=== PATIENT | female | born 1960 | race Caucasian/White ===

== ENCOUNTER 2016-10-29 13:19 | Inpatient (IN) | payer OTHER ==
[~2016-10-29] VITALS: Ht 172.7 cm; Wt 68.0 kg
--- NOTE | 2016-10-29 13:36 | ED PSYCHIATRIC COMPLAINT ---
History of Present Illness General Chief Complaint: ETOH/Drug Related Complaint Stated Complaint: DETOX/ETOH Source: patient, family Exam Limitations: no limitations Vital Signs & Intake/Output Vital Signs & Intake/Output Vital Signs Date Time Temp Pulse Resp B/P B/P Pulse O2 O2 Flow FiO2 Mean Ox Delivery Rate 10/30 2027 90 124/84 10/29 2024 90 20 124/84 94 Room Air 10/29 1803 98.9 100 22 132/98 10/29 1628 100.1 91 22 119/67 10/29 1624 100.1 91 22 11967 94 Room Air 10/29 1500 99.3 95 20 127/70 10/29 1500 99.3 95 20 127/70 96 Room Air 10/29 1347 Room Air 10/29 1344 98.7 88 18 128/77 10/29 1328 98.0 88 20 128/77 98 Room Air Allergies Coded Allergies: Sulfa (Sulfonamide Antibiotics) (Intermediate, FACIAL SWELLING 10/29/16) Triage Note: PT PRESENTS TO ER FOR ALCOHOL DETOX. PT VISIBLY SHAKEY IN TRIAGE. PT STATES SHE LAST DRANK TUESDAY. PT STATES SHE HEAVILY DRINKS ON THE WEEKENDS, PT STATES SHE NORMALLY HAS ABOUT 4 GLASSES OF VODKA ON THE WEEKENDS. PT STATES SHE FEELS VERY ANXIOUS. PT DENIES SI/HI Triage Nurses Notes Reviewed? yes Onset: Gradual Duration: getting worse Severity: severe Severity Numbers: 10 HPI: Patient is a 56-year-old female with past medical history of alcohol dependency, anxiety, depression who presents emergency room and which she states that she's been a heavy drinker for a long time however denies any history of alcohol withdrawal seizures. Patient was evaluated at [facility] and noted to have alcohol from a breathalyzer in which patient was strongly advised to present to the emergency room by staff members. Patient states her last drink was Tuesday night when she drank a significant amount. Patient denies any illicit drug use. Denies any suicidal or homicidal ideation. Denies any auditory or visual hallucinations. Patient currently states that she is scared and tremulous and her anxiety level is very high. Patient was prescribed recently clonazepam however she has not taken his medications. Denies any nausea vomiting abdominal pain shortness of breath chest pain or headaches. (ANDRIA ELIZABETH,BRIAN) Reconcile Medications Atenolol 25 MG TABLET 1 TAB PO QAM HIGH BLOOD PRESSURE (Reported) Citalopram Hydrobromide (Citalopram HBr) 40 MG TABLET 1 TAB PO QAM DEPRESSION (Reported) Estrogens, Conjugated (Premarin) 0.3 MG TABLET 1 TAB PO QAM HORMONE ( Reported) Valsartan/Hydrochlorothiazide (Valsartan-Hctz 160-12.5 MG Tab) 160 MG-12.5 MG TABLET 1 TAB PO QAM HIGH BLOOD PRESSURE (Reported) (HARRIS PALMER DO) Past History Travel History Traveled to [place] past 21 day No Medical History Any Pertinent Medical History? see below for history Cardiovascular: hypertension Psychiatric: alcohol dependence, anxiety, depression Surgical History Surgical History: non-contributory Psychosocial History What is your primary language Yakut Tobacco Use: Never used ETOH Use: heavy use Illicit Drug Use: denies illicit drug use Family History Hx Contributory? No (BRIAN PANDEY) Review of Systems Review of Systems Constitutional: Reports: no symptoms. EENTM: Reports: no symptoms. Respiratory: Reports: no symptoms. Cardiovascular: Reports: no symptoms. GI: Reports: no symptoms. Genitourinary: Reports: no symptoms. Musculoskeletal: Reports: no symptoms. Skin: Reports: no symptoms. Neurological/Psychological: Reports: see HPI, anxiety. Hematologic/Endocrine: Reports: no symptoms. Immunologic/Allergic: Reports: no symptoms. 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 Cardiovascular: TACHYCARDIA, rhythms no murmurs rubs or gallops, normal JVP Respiratory: Chest nontender. No respiratory distress.breath sounds clear to auscultation bilaterally Abdomen: Soft, nontender nondistended, no appreciable organomegaly. Normal bowel sounds. No ascites Extremity: No edema, no calf tenderness to palpation, normal and equal pulses. Neuro: Alert oriented x3, motor sensory normal, cranial nerves II through XII grossly intact. Skin: No appreciable rash on exposed skin, skin is warm and dry. Psych: Mood and affect is normal, memory and judgment is normal. SAD PERSONS Done? patient not suicidal (ANDRIA ELIZABETH,BRIAN) Progress Differential Diagnosis: drug intoxication, drug overdose, drug withdrawal, electrolyte abnormality, encephalitis, hypoglycemia, hypothyroidism, IC hem/mass /tumor, meningitis Plan of Care: Orders Procedure Date/time Status Regular Diet 10/30 B Active Regular Diet 10/29 D Complete Vital Signs 10/29 1802 Active Teach/Educate 10/29 1802 Active Pain Treatment and Response 10/29 180 Active Nutritional Intake, Monitor 10/29 180 Active Isolation 10/29 1802 Active Intake & Output 10/29 1802 Active Patient Care Conference 10/29 1802 Active Activity/Ambulation 10/29 1802 Active Pathway - chart 10/29 1708 Active House Staff 10/29 1708 Active Patient Data 10/29 1708 Active SOCIAL WORK CONSULT 10/29 1708 Active Code Status 10/29 1708 Active ED Holding Orders 10/29 1640 Active Admit to inpatient 10/29 1640 Active Vital Signs 10/29 1640 Active Code Status 10/29 1640 Complete Intake & Output 10/29 1607 Active Patient Data 10/29 1534 Active CIWA 10/29 1337 Active URINE DRUG SCREEN FOR ER ONLY 10/29 1337 Complete MAGNESIUM 10/29 1337 Complete LIPASE 10/29 1337 Complete ETHANOL 10/29 1337 Complete COMPREHENSIVE METABOLIC PANEL 10/29 1337 Complete CBC WITHOUT DIFFERENTIAL 10/29 1337 Complete AMYLASE 10/29 1337 Complete EKG 10/29 1337 Active VTE Mechanical Prophylaxis 10/29 UNK Active Vital Signs 10/29 UNK Complete CIWA 10/29 UNK Complete MISSING MEDICATION FORM 10/29 UNK Active EKG 10/29 UNK Active Current Medications Sig/Sandee Start time Last Medication Dose Stop Time Status Admin Folic Acid 1 MG DAILY 10/31 1000 AC (Folic Acid) Multivitamins 1 TAB DAILY 10/31 1000 AC (Theragran Vitamins) Thiamine HCl 100 MG DAILY 10/31 1000 AC (Vitamin B1) Citalopram 40 MG DAILY 10/30 1000 AC Hydrobromide (Celexa) Estrogens Conjugated 0.3 MG DAILY 10/30 1000 AC (Premarin) Hydrochlorothiazide 12.5 MG DAILY 10/30 1000 AC (Hydrodiuril) Losartan Potassium 50 MG DAILY 10/30 1000 AC (Cozaar) Atenolol 25 MG QAM 10/29 1853 AC 10/29 (Tenormin) 2027 Lorazepam 2 MG Q6 10/29 1800 AC 10/29 (Ativan) 1823 Magnesium Sulfate 1 GM ONCE ONE 10/29 1730 AC 10/29 (Mag Sulfate in D5) 10/29 2128 193 Dextrose/Water 100 ML (D5W) Acetaminophen 1,000 MG Q6P PRN 10/29 1700 AC (Ofirmev) Ibuprofen 600 MG Q6P PRN 10/29 1700 AC (Motrin) Lorazepam 2 MG Q2P PRN 10/29 1700 AC (Ativan) Lorazepam 1 MG Q2P PRN 10/29 1700 AC (Ativan) Ondansetron HCl 4 MG Q8P PRN 10/29 1700 AC (Zofran) Oxycodone HCl 10 MG Q6P PRN 10/29 1700 AC (Roxicodone) Cyanocobalamin/ 1 BAG DAILY 10/29 1654 AC 10/29 Thiamine/Pyridoxine 10/31 1758 191 (Vitamin in I.V.) Dextrose/Water 1,000 ML (D5W 1000) Laboratory Tests 10/29/16 1410: Anion Gap 21 H, Estimated GFR > 60, BUN/Creatinine Ratio 11.1, Glucose 72, Calcium 8.9, Magnesium 0.8 *L, Total Bilirubin 0.4, AST 114 H, ALT 105 H, Alkaline Phosphatase 75, Total Protein 6.8, Albumin 4.3, Globulin 2.5, Albumin/ Globulin Ratio 1.7, Amylase 84, Lipase 286, CBC w Diff NO MAN DIFF REQ, RBC 3.62 L, MCV 91.1, MCH 30.8, RDW 13.9, MPV 8.1, Gran % 68.1, Lymphocytes % 21.6, Monocytes % 8.9, Eosinophils % 0.2, Basophils % 1.2, Absolute Granulocytes 3.4, Absolute Lymphocytes 1.1 L, Absolute Monocytes 0.4, Absolute Eosinophils 0, Absolute Basophils 0.1, PUBS MCHC 33.9, Serum Alcohol 111.0 10/29/16 1345: Urine Opiates Screen < 100.00, Methadone Screen 57, Barbiturate Screen < 60, Ur Phencyclidine Scrn < 6.00, Amphetamines Screen < 100, U Benzodiazepines Scrn < 85, Urine Cocaine Screen < 50, Urine Cannabis Screen < 5.00 Patient has no history of alcohol withdrawal seizures and her initial CIWA WAS 13 Patient does show tremulous activity and is anxious on physical exam however has nontender abdomen and no suicidal or homicidal ideation. Patient has critical findings of hypo-magnesium. IV Ativan and magnesium were administered along with normal saline fluid resuscitation. There is no concerns of prolonged QT interval on EKG (BRIAN PANDEY) Initial ED EKG: sINUS RHYTHM NOTED 85 BPM (BRIAN PANDEY) Departure Departure Disposition: STILL A PATIENT Condition: Guarded Clinical Impression Primary Impression: Hypomagnesemia Secondary Impressions: Alcohol dependence, Anxiety Departure Forms: Customer Survey General Discharge Information Admission Note Spoke With: ELVER ARRIOLA MD Documentation of Exam: Documentation of any treatments & extenuating circumstances including Concerns Regarding Discharge (functional status, medication knowledge or non-compliance, living conditions, etc.) that warrant an admission rather than observation: [ Discussed admission with who agrees with general medicine admission for concerns of hypo-magnesium and alcohol dependency. Patient requires IV magnesia , IV Ativan, CIWA SCORING and repeat labs. Outpatient treatment at this time due to critical findings of hypo-magnesium would be medically harmful] (BRIAN PANDEY) PA/[employer] Co-Sign Statement Statement: ED Attending supervision documentation- [x] I saw and evaluated the patient. I have also reviewed all the pertinent lab results and diagnostic results. I agree with the findings and the plan of care as documented in the PA's/[employer]'s documentation. [] I have reviewed the ED Record and agree with the PA's/[employer]'s documentation. [] Additions or exceptions (if any) to the PAs/[employer]'s note and plan are summarized below: [] (HARRIS PALMER DO) Critical Care Note Critical Care Note Critical Care Time: 30-74 min (BRIAN PANDEY)
[2016-10-29 13:44] VITALS: BP 128/77
[2016-10-29 14:31] LABS: ABSOLUTE BASOPHIL COUNT 0.1 /CUMM (0.0-0.2); ABSOLUTE EOSINOPHIL COUNT 0 /CUMM (0.0-0.7); ABSOLUTE GRANULOCYTE CT 3.4 /CUMM (1.4-6.5); ABSOLUTE LYMPH COUNT 1.1 /CUMM (1.2-3.4); ABSOLUTE MONOCYTE COUNT 0.4 /CUMM (0.10-0.60); BASOPHIL % 1.2 % (0.0-2.0); EOSINOPHIL % 0.2 % (0-5); GRANULOCYTE % 68.1 % (42.2-75.2); MEAN CORPUSCULAR HGB 30.8 PG (27.0-31.0); MEAN CORPUSCULAR HGB CONC 33.9 G/DL (33.0-37.0); MEAN CORPUSCULAR VOLUME 91.1 FL (81.0-99.0); MEAN PLATELET VOLUME 8.1 FL (7.4-10.4); PLATELET COUNT 342 /CUMM (130-400); RBC DISTRIBUTION WIDTH 13.9 % (11.5-14.5); RED BLOOD CELL CT 3.62 /CUMM (4.20-5.40)
[2016-10-29 15:00] VITALS: BP 127/70
[2016-10-29 16:28] VITALS: BP 119/67
[2016-10-29] MEDS ORDERED: VALSARTAN-HCTZ1 EAC1 PO (17:39)
[2016-10-29] MEDS ORDERED: ATENOLOL25 M1 PO (17:39)
[2016-10-29] MEDS ORDERED: PREMARIN0.3 M1 PO (17:42)
[2016-10-29] MEDS ORDERED: CITALOPRAM HBR40 MG PO (17:43)
--- NOTE | 2016-10-29 17:55 | History & Physical ---
MILAGROS TIM,[facility] 10/29/16 1726: General Information and [facility] MD Statement: I have seen and personally examined SELENE COLES and documented this H&P. The patient is a 56 year old F who presented with a patient stated chief complaint of [Alcohol detox]. Source of Information: patient, family Exam Limitations: no limitations History of Present Illness: This is a 56-year-old female with past medical history significant for alcohol dependence, anxiety, depression, hypertension, who comes in requesting alcohol detox. Patient went to [facility] for alcohol rehabilitation and as her breathalyzer was positive was told to come to [facility] for detox. Patient states that she has never had inpatient alcohol rehabilitation before; however, she did participate in outpatient rehab She recently completed 3 weeks of an intensive outpatient program, the patient felt she was not benefiting her so she stopped. Patient states that she is able to hold down a full-time job and primarily drinks over the weekends, starting on Tuesday. She drinks about 4 glasses of vodka a day. She states that she started consuming more alcohol in the past 9 months due to life stressors. Last drink was on Tuesday night, she denies any previous history of withdrawal seizures or hospitalizations for substance abuse. Patient denies any suicidal or homicidal ideation. Denies any headache, nausea, vomiting, diarrhea, shortness of breath or chest pain. Does not smoke or engage in drug abuse. In her IOP she was given Klonopin 0.25 then 0.5 twice a day. Last time she had a dose was on Tuesday. She has never had Klonopin before. She also states that she was not compliant with the doses that she was getting. Her psychiatrist, Dr. Mulligan in [place], [place] suggested inpatient treatment. She also sees him for anxiety and depression. Allergies/Medications Allergies: Coded Allergies: Sulfa (Sulfonamide Antibiotics) (Intermediate, FACIAL SWELLING 10/29/16) Home Med list Atenolol 25 MG TABLET 1 TAB PO QAM HIGH BLOOD PRESSURE (Reported) Citalopram Hydrobromide (Citalopram HBr) 40 MG TABLET 1 TAB PO QAM DEPRESSION (Reported) Estrogens, Conjugated (Premarin) 0.3 MG TABLET 1 TAB PO QAM HORMONE ( Reported) Valsartan/Hydrochlorothiazide (Valsartan-Hctz 160-12.5 MG Tab) 160 MG-12.5 MG TABLET 1 TAB PO QAM HIGH BLOOD PRESSURE (Reported) Past History Travel History Traveled to [place] past 21 day No Medical History Cardiovascular: hypertension Psychiatric: alcohol dependence, anxiety, depression Surgical History Surgical History: non-contributory Past Family/Social History Family History Relations & Conditions if any Family history was reviewed; no changes noted. Psychosocial History ETOH Use: heavy use Illicit Drug Use: denies illicit drug use Functional Ability ADLs Independent: dressing, eating, toileting, bathing. Ambulation: independent IADLs Independent: shopping, housework, finances, food prep, telephone, transportation , medication admin. Review of Systems Review of Systems Constitutional: Denies: chills, fever, weakness. Cardiovascular: Denies: chest pain, edema. Respiratory: Denies: cough, orthopnea. Genitourinary: Reports: no symptoms. Musculoskeletal: Reports: no symptoms. Skin: Reports: no symptoms. Exam & Diagnostic Data Last 24 Hrs of Vital Signs/I&O Vital Signs Date Time Temp Pulse Resp B/P B/P Pulse O2 O2 Flow FiO2 Mean Ox Delivery Rate 10/29 1628 100.1 91 22 119/67 10/29 1624 100.1 91 22 119/67 94 Room Air 10/29 1500 99.3 95 20 127/70 10/29 1500 99.3 95 20 127/70 96 Room Air 10/29 1347 Room Air 10/29 1344 98.7 88 18 128/77 10/29 1328 98.0 88 20 128/77 98 Room Air Intake & Output 10/29 1600 10/29 0800 10/29 0000 Intake Total Output Total Balance Patient 150 lb Weight Physical Exam General Appearance Alert, Oriented X3, Cooperative Skin No Rashes, No Breakdown Cardiovascular Normal S1, Normal S2, No Murmurs Lungs Clear to Auscultation, Normal Air Movement Abdomen Normal Bowel Sounds, Soft, No Tenderness Neurological Normal Speech, Strength at 5/5 X4 Ext, Sensation Intact Extremities No Cyanosis, No Edema, No Tenderness/Swelling Last 24 Hrs of Labs/Jesus: Laboratory Tests 10/29/16 1410: Anion Gap 21 H, Estimated GFR > 60, BUN/Creatinine Ratio 11.1, Glucose 72, Calcium 8.9, Magnesium 0.8 *L, Total Bilirubin 0.4, AST 114 H, ALT 105 H, Alkaline Phosphatase 75, Total Protein 6.8, Albumin 4.3, Globulin 2.5, Albumin/ Globulin Ratio 1.7, Amylase 84, Lipase 286, CBC w Diff NO MAN DIFF REQ, RBC 3.62 L, MCV 91.1, MCH 30.8, RDW 13.9, MPV 8.1, Gran % 68.1, Lymphocytes % 21.6, Monocytes % 8.9, Eosinophils % 0.2, Basophils % 1.2, Absolute Granulocytes 3.4, Absolute Lymphocytes 1.1 L, Absolute Monocytes 0.4, Absolute Eosinophils 0, Absolute Basophils 0.1, PUBS MCHC 33.9, Serum Alcohol 111.0 10/29/16 1345: Urine Opiates Screen < 100.00, Methadone Screen 57, Barbiturate Screen < 60, Ur Phencyclidine Scrn < 6.00, Amphetamines Screen < 100, U Benzodiazepines Scrn < 85, Urine Cocaine Screen < 50, Urine Cannabis Screen < 5.00 Assessment/Plan Assessment: Assessment: Patient is 56-year-old female with past medical history significant for anxiety, depression, alcohol abuse, hypertension, who comes in for chief complaint requesting alcohol detox. Patient does not have history of withdrawal seizures or DTs and she has failed outpatient rehabilitation. ED workup shows profound hypomagnesemia with mild QTC prolongation. Patient will be admitted to the general medicine floor for further monitoring and workup. Workup in ED shows: Vitals: 99.8, 88, 20, 128/77, 98. CBC: White count 5.0, hemoglobin 11.2, hematocrit 33.0, platelet 342. BEP: Sodium 132, potassium 3.8, chloride 92, bicarbonate 19, BUN 10, creatinine 0.9. Anion gap 21. Magnesium 0.8. AST 114, ALT 105, alkaline phosphatase 75. Negative amylase or lipase Serum alcohol 111 EKG: Rate 85, normal sinus rhythm. NJ 168, QTC 471. Lead V5 seems to show some ST depression and possible U wave PLAN: Alcohol detox: Pt comes in requesting EtOH detox, utox showing level of 111. Last drink on 10/27/2016. Max CIWA score in ED at 15. * CIWA protocol * Banana bag * Standing order of Ativan 2 every 6h Anion gap: Patient has A gap metabolic acidosis, with a gap of 21. Looking at the delta delta looks that patient has both gap and non-gap metabolic acidosis. Suspect that this is a combination of patient's alcohol ingestion and anxiety causing hyperventilation and respiratory alkalosis. However, if patient fails to improve we'll consider other etiologies such as toxic alcohol ingestion's and would pursue osmolal gap and a urine anion gap. She currently denies any ingestion. * Fluids for hydration * Monitor BEP Hypomagnesemia: Patient has magnesium of 0.8 with EKG suggestive of some minor changes. She has QTC of 471. Patient has low threshold to telemetry if repeat EKG shows worsening. Patient received 1 g IV mag in ED, she will receive a second one on the floor. Her previous calculation patient should receive 2.1 g every 6. * Repeat BEP * Repeat EKG Hyponatremia: Patient has sodium 132. Receive one bag of IV fluids in ED. We' ll continue gentle hydration. * Monitor BEP Transaminitis: patient has AST 114, ALT 105, alkaline phosphatase 75. Likely secondary to alcohol abuse. However not classic 2-1 ratio. We'll continue to monitor * Monitor LFT in a.m. * If continues to trend upwards or patient has abdominal pain consider right upper quadrant ultrasound Depression: Chronic and stable. Patient denies any SI or HI. * Continue citalopram Hypertension: Blood pressure 120/77 in ED. * cont' valsartan-hctz Menopause Symptoms: chronic and stable * Con't Premarin tab Full code Regular diet Alps for prophylaxis As Ranked By This Provider Problem List: 1. Alcohol dependence 2. Anxiety 3. Hypomagnesemia Core Measures/Miscellaneous Acute Coronary Syndrome ACS Diagnosis: No Cerebrovascular Accident CVA/TIA Diagnosis: No Congestive Heart Failure CHF Diagnosis: No VTE (View Protocol) VTE Risk Factors: Estrogen No Mech VTE prophylaxis d/t: No contraindications No VTE Pharm Prophylaxis d/t: No contraindications VTE Diagnosis: No VTE Type: NONE VTE Confirmed by (Test): NONE Sepsis (View Protocol) Severe Sepsis Present: No Septic Shock Septic Shock Present: No Miscellaneous Documentation Attending Case Discussed With: FLAKO TIM,ELVER Primary Care Physician: PATIENT HAS NO PRIMARY CARE DR Patient sees these Specialists psych Level of Patient Care: General Medicine MELODIE TIM,[facility] 10/29/16 9543: Resident Review Statement Resident Statement: examined this patient Other Findings: This is a 56-year-old female with past medical history significant for alcohol dependence, anxiety, depression, hypertension, who comes in requesting alcohol detox. Patient went to [facility] for alcohol rehabilitation and as her breathalyzer was positive was told to come to [facility] for detox. Patient states that she has never had inpatient alcohol rehabilitation before; however, she did participate in outpatient rehab She recently completed 3 weeks of an intensive outpatient program, the patient felt he was not benefiting her so she stopped. Patient states that she is able to hold down a full-time job and primarily drinks over the weekends, starting on Tuesday. She drinks about 4 glasses of vodka a day. She states that she started consuming more alcohol in the past 9 months due to life stressors. Last drink was on Tuesday night, she denies any previous history of withdrawal seizures or hospitalizations for substance abuse. Patient denies any suicidal or homicidal ideation. Denies any headache, nausea, vomiting, diarrhea, shortness of breath or chest pain. Does not smoke or engage in drug abuse. In her IOP she was given Klonopin 0.25 then 0.5 twice a day. Last time she had a dose was on Tuesday. She has never had Klonopin before. She also states that she was not compliant with the doses that she was getting. Her psychiatrist, Dr. Mulligan in [place], [place] suggested inpatient treatment. She also sees him for anxiety and depression. Workup in ED shows: Vitals: 99.8, 88, 20, 128/77, 98. CBC: White count 5.0, hemoglobin 11.2, hematocrit 33.0, platelet 342. BEP: Sodium 132, potassium 3.8, chloride 92, bicarbonate 19, BUN 10, creatinine 0.9. Anion gap 21. Magnesium 0.8. AST 114, ALT 105, alkaline phosphatase 75. Negative amylase or lipase Serum alcohol 111 EKG: Rate 85, normal sinus rhythm. NJ 168, QTC 471. Lead V5 seems to show some ST depression and possible U wave Assessment: Patient is 56-year-old female with past medical history significant for anxiety, depression, alcohol abuse, hypertension, who comes in for chief complaint requesting alcohol detox. Patient does not have history of withdrawal seizures or DTs and she has failed outpatient rehabilitation. ED workup shows profound hypomagnesemia with mild QTC prolongation. Patient will be admitted to the general medicine floor for further monitoring and workup. PLAN: Alcohol detox: Pt comes in requesting EtOH detox, utox showing level of 111. Last drink on 10/27/2016. Max CIWA score in ED at 15. * CIWA protocol * Banana bag * Standing order of Ativan 2 every 6h Anion gap: Patient has A gap metabolic acidosis, with a gap of 21. Looking at the delta delta looks that patient has both gap and non-gap metabolic acidosis. Suspect that this is a combination of patient's alcohol ingestion and anxiety causing hyperventilation and respiratory alkalosis. However, if patient fails to improve we'll consider other etiologies such as toxic alcohol ingestion's and would pursue osmolal gap and a urine anion gap. She currently denies any ingestion. * Fluids for hydration * Monitor BEP Hypomagnesemia: Patient has magnesium of 0.8 with EKG suggestive of some minor changes. She has QTC of 471. Patient has low threshold to telemetry if repeat EKG shows worsening. Patient received 1 g IV mag in ED, she will receive a second one on the floor. Per calculation patient should receive 2.1 g every 6. * Repeat BEP * Repeat EKG * Replete mag Hyponatremia: Patient has sodium 132. Receive one bag of IV fluids in ED. We' ll continue gentle hydration. * Monitor BEP * Transaminitis: patient has AST 114, ALT 105, alkaline phosphatase 75. Likely secondary to alcohol abuse. However not classic 2-1 ratio. We'll continue to monitor * Monitor LFT in a.m. * If continues to trend upwards or patient has abdominal pain consider right upper quadrant ultrasound Depression: Chronic and stable. Patient denies any SI or HI. * Continue citalopram Hypertension: Blood pressure 120/77 in ED. * cont' valsartan-hctz Menopause Symptoms: chronic and stable * Con't Premarin tab Full code Regular diet Alps for prophylaxis ELVER ARRIOLA MD 10/29/162134: Attending MD Review Statement Attending Statement Attending MD Statement: examined this patient, discuss w/resident/PA/VICE CHANCELLOR, agreed w/resident/PA/VICE CHANCELLOR, reviewed EMR data (avail) Attending Assessment/Plan: 56F polysubstance abuse sent in from [employer] for having elevated EtOH level, last drink on Tuesday, level today was 111. Showing signs of withdrawal, agitated, tachycardic, CIWA 11 in ED. Mg level was 0.8, other electrolytes normal, mild transaminitis. EKG NSR with normal QTc. Will admit to medicine, Ativan standing and PRN CIWA, replete magnesium, trend LFTs.
[2016-10-29 18:03] VITALS: BP 132/98
[2016-10-29 20:25] VITALS: BP 124/84
--- NOTE | 2016-10-29 21:36 | Admission Certification ---
Admission Certification Certification Statement - As attending physician, I certify that at the time of - admission, based on clinical presentation, severity of - symptoms, need for further diagnostic testing and - therapeutic interventions, and risk of adverse outcomes - without in-hospital treatment, in my clinical assessment, - this patient requires an acute hospital stay for a minimum - of two nights or longer. I have also considered psychsocial - factors such as support system, advanced age, financial - issues, cognitive issues, and failed out-patient treatments, - past re-admission history, safety of patient, and lack of - compliance as applicable. Specific rationale supporting this admission is: Alcohol withdrawal with high CIWA and severe hypomagnesemia
[2016-10-29 23:10] VITALS: BP 122/78
[2016-10-30] VITALS (7 sets, daily range): BP systolic 122–138; BP diastolic 72–90
--- NOTE | 2016-10-30 00:39 | PN- Housestaff ---
See Addendum Subjective Follow-up For: Alcohol detox hypo mg Complaints: no complaints Subjective: I seen and examined the patient patient was sleeping comfortably. She wanted to know how long the she has to stay in the hospital. She thinks that she is doing very well. She asked me where she will be going for rehabilitation. I told her it is [facility]. She does not have any current complaints. She denies shortness of breath chest pain or palpitations. She denies any fever or nausea. She was still quite jittery when i saw her Review of Systems Constitutional: Reports: see HPI. Objective Last 24 Hrs of Vital Signs/I&O Vital Signs Date Time Temp Pulse Resp B/P B/P Pulse O2 O2 Flow FiO2 Mean Ox Delivery Rate 10/30 0300 99.4 68 20 138/90 95 Room Air 10/29 2310 98.9 88 20 122/78 94 Room Air 10/29 2028 90 124/84 10/29 202 90 20 124/84 94 Room Air 10/29 1803 98.9 100 22 132/98 10/29 1628 100.1 91 22 119/67 10/29 1624 100.1 91 22 119/67 94 Room Air 10/29 1500 99.3 95 20 127/70 07/14 1500 99.3 95 20 127/70 96 Room Air 10/29 1347 Room Air 10/29 1344 98.7 88 18 128/77 10/29 1328 98.0 88 20 128/77 98 Room Air Intake & Output 10/30 0800 10/30 0000 10/29 1600 Intake Total 2049 Output Total Balance 2049 Intake, IV 1569 Intake, Oral 480 Patient 150 lb 150 lb Weight Weight Reported by Patient Measurement Method Physical Exam General Appearance: Alert, Oriented X3, Cooperative, Jittery going through withdrwal Skin: No Rashes, No Breakdown Neck: Supple Cardiovascular: Regular Rate, Normal S1, Normal S2 Lungs: Clear to Auscultation, Normal Air Movement Abdomen: Normal Bowel Sounds, Soft, No Tenderness Neurological: Normal Speech Extremities: No Clubbing, No Cyanosis, No Edema Current Medications: Current Medications Sig/Sandee Start time Last Medication Dose Route Stop Time Status Admin Acetaminophen 1,000 MG Q6P PRN 10/29 1700 AC IV Atenolol 25 MG QAM 10/29 1853 AC 10/29 PO 2028 Citalopram 40 MG DAILY 10/30 1000 AC Hydrobromide PO Cyanocobalamin/ 1 BAG DAILY 10/29 1654 AC 10/29 Thiamine/Pyridoxine IV 10/31 1759 1916 Dextrose/Water 1,000 ML Estrogens Conjugated 0.3 MG DAILY 10/30 1000 AC PO Folic Acid 1 MG DAILY 10/31 1000 AC PO Hydrochlorothiazide 12.5 MG DAILY 10/30 1000 AC PO Ibuprofen 600 MG Q6P PRN 10/29 1700 AC PO Lorazepam 1.5 MG Q12H 10/31 0600 DC PO 10/31 1801 Lorazepam 1.5 MG Q6 10/30 0600 DC PO 10/30 1801 Lorazepam 2 MG Q6 10/29 1800 AC 10/30 PO 0035 Lorazepam 2 MG Q2P PRN 10/29 1700 AC IV Lorazepam 1 MG Q2P PRN 10/29 1700 AC 10/29 IV 2217 Lorazepam 0 .STK-MED ONE 10/29 1519 DC .ROUTE Lorazepam 2 MG ONE ONE 10/29 1515 DC 10/29 IV 10/29 1516 1523 Losartan Potassium 50 MG DAILY 10/30 1000 AC PO Magnesium Sulfate 1 GM ONCE ONE 10/29 1730 DC 10/29 Dextrose/Water 100 ML IV 10/29 2129 1932 Magnesium Sulfate 1 GM ONCE ONE 10/29 1515 DC 10/29 Dextrose/Water 100 ML IV 10/29 1914 1523 Multivitamins 1 TAB DAILY 10/31 1000 AC PO Ondansetron HCl 4 MG Q8P PRN 10/29 1700 AC IV Oxycodone HCl 10 MG Q6P PRN 10/29 1700 AC PO Sodium Chloride 1,000 ML BOLUS ONE 10/29 1515 DC 10/29 IV 10/29 1614 1523 Thiamine HCl 100 MG DAILY 10/31 1000 AC PO Last 24 Hrs of Lab/Jesus Results Last 24 Hrs of Labs/Mics: Laboratory Tests 10/29/16 1410: Anion Gap 21 H, Estimated GFR > 60, BUN/Creatinine Ratio 11.1, Glucose 72, Calcium 8.9, Magnesium 0.8 *L, Total Bilirubin 0.4, AST 114 H, ALT 105 H, Alkaline Phosphatase 75, Total Protein 6.8, Albumin 4.3, Globulin 2.5, Albumin/ Globulin Ratio 1.7, Amylase 84, Lipase 286, CBC w Diff NO MAN DIFF REQ, RBC 3.62 L, MCV 91.1, MCH 30.8, RDW 13.9, MPV 8.1, Gran % 68.1, Lymphocytes % 21.6, Monocytes % 8.9, Eosinophils % 0.2, Basophils % 1.2, Absolute Granulocytes 3.4, Absolute Lymphocytes 1.1 L, Absolute Monocytes 0.4, Absolute Eosinophils 0, Absolute Basophils 0.1, PUBS MCHC 33.9, Serum Alcohol 111.0 10/29/16 1345: Urine Opiates Screen < 100.00, Methadone Screen 57, Barbiturate Screen < 60, Ur Phencyclidine Scrn < 6.00, Amphetamines Screen < 100, U Benzodiazepines Scrn < 85, Urine Cocaine Screen < 50, Urine Cannabis Screen < 5.00 Assessment/Plan Assessment: Patient is 56-year-old female with past medical history significant for anxiety, depression, alcohol abuse, hypertension, who comes in for chief complaint requesting alcohol detox. Patient does not have history of withdrawal seizures or DTs and she has failed outpatient rehabilitation. ED workup shows profound hypomagnesemia with mild QTC prolongation. Patient will be admitted to the general medicine floor for further monitoring and workup. Workup in ED shows: Vitals: 99.8, 88, 20, 128/77, 98. CBC: White count 5.0, hemoglobin 11.2, hematocrit 33.0, platelet 342. BEP: Sodium 132, potassium 3.8, chloride 92, bicarbonate 19, BUN 10, creatinine 0.9. Anion gap 21. Magnesium 0.8. AST 114, ALT 105, alkaline phosphatase 75. Negative amylase or lipase Serum alcohol 111 EKG: Rate 85, normal sinus rhythm. UT 168, QTC 471. Lead V5 seems to show some ST depression and possible U wave PLAN: Alcohol detox: Pt comes in requesting EtOH detox, utox showing level of 111. Last drink on 10/27/2016. Max CIWA score in ED at 15. * CIWA protocol * Banana bag * Standing order of Ativan 2 every 6h Anion gap: Patient has A gap metabolic acidosis, with a gap of 21. Looking at the delta delta looks that patient has both gap and non-gap metabolic acidosis. Suspect that this is a combination of patient's alcohol ingestion and anxiety causing hyperventilation and respiratory alkalosis. However, if patient fails to improve we'll consider other etiologies such as toxic alcohol ingestion's and would pursue osmolal gap and a urine anion gap. She currently denies any ingestion. * Fluids for hydration * Monitor BEP Hypomagnesemia: Patient has magnesium of 0.8 with EKG suggestive of some minor changes. She has QTC of 471. Patient has low threshold to telemetry if repeat EKG shows worsening. Patient received 1 g IV mag in ED, she will receive a second one on the floor. Her previous calculation patient should receive 2.1 g every 6. * Repeat BEP * Repeat EKG Hyponatremia: Patient has sodium 132. Receive one bag of IV fluids in ED. We' ll continue gentle hydration. * Monitor BEP Transaminitis: patient has AST 114, ALT 105, alkaline phosphatase 75. Likely secondary to alcohol abuse. However not classic 2-1 ratio. We'll continue to monitor * Monitor LFT in a.m. * If continues to trend upwards or patient has abdominal pain consider right upper quadrant ultrasound Depression: Chronic and stable. Patient denies any SI or HI. * Continue citalopram Hypertension: Blood pressure 120/77 in ED. * cont' valsartan-hctz Menopause Symptoms: chronic and stable * Con't Premarin tab Problem List: 1. Hypomagnesemia 2. Alcohol dependence Pain Ratin Pain Location: none Pain Goal: Pain 4 or less Pain Plan: ativan Tomorrow's Labs & Rationales: cbc, bep, lfts
[2016-10-30 08:51] LABS: ABSOLUTE BASOPHIL COUNT 0 /CUMM (0.0-0.2); ABSOLUTE EOSINOPHIL COUNT 0.1 /CUMM (0.0-0.7); ABSOLUTE GRANULOCYTE CT 2.5 /CUMM (1.4-6.5); ABSOLUTE LYMPH COUNT 0.9 /CUMM (1.2-3.4); ABSOLUTE MONOCYTE COUNT 0.4 /CUMM (0.10-0.60); BASOPHIL % 0.9 % (0.0-2.0); EOSINOPHIL % 1.3 % (0-5); GRANULOCYTE % 64.5 % (42.2-75.2); HEMATOCRIT 33.3 % (37-47); MEAN CORPUSCULAR HGB 31.6 PG (27.0-31.0); MEAN CORPUSCULAR HGB CONC 34.2 G/DL (33.0-37.0); MEAN CORPUSCULAR VOLUME 92.5 FL (81.0-99.0); MEAN PLATELET VOLUME 9.2 FL (7.4-10.4); PLATELET COUNT 286 /CUMM (130-400); RBC DISTRIBUTION WIDTH 14.4 % (11.5-14.5); WHITE BLOOD CELL COUNT 3.9 /CUMM (4.8-10.8)
[2016-10-31] VITALS (9 sets, daily range): BP systolic 120–140; BP diastolic 62–96
--- NOTE | 2016-10-31 10:39 | PN- Housestaff ---
KVNG TIM,BELKIS 10/31/16 1039: Subjective Follow-up For: Alcohol detox, hypomagnesemia, AGMA, Transaminitis, Depression, HTN Subjective: I saw and examined the patient today. She was very tearful and upset today. She just found out online that her mother is selling her house and possibly moving to [place] to live with her [id number]. States her mother has not been mentally well since her brother on 12/27. States she is here because she went to a rehab facility in [place] after having an alcoholic drink and was sent here for detox before she could continues. States the longer she stays here the less she would like to return to outpatient rehab. She misses her home. She hallucinations, SI/HI. Denies SOB, chest pain, palpitations, abdominal pain, n/v , fever or chills. Has tremor but states that she has one normally which worsens with anxiety and caffeine both of which she has had today. Review of Systems Constitutional: Denies: see HPI. Objective Last 24 Hrs of Vital Signs/I&O Vital Signs Date Time Temp Pulse Resp B/P B/P Pulse O2 O2 Flow FiO2 Mean Ox Delivery Rate 10/31 1018 68 122/92 10/31 1014 63 122/92 10/31 0703 98.5 68 20 140/96 94 10/31 0215 98.3 71 20 120/82 97 Room Air 10/30 2105 98.4 75 20 126/80 97 10/30 1636 98.3 74 20 128/72 98 10/30 1400 99.1 69 20 128/88 Intake & Output 10/31 1600 10/31 0800 10/31 0000 Intake Total 120 450 Output Total Balance 120 450 Intake, Oral 120 450 Physical Exam General Appearance: Alert, Oriented X3, Cooperative, Mild Distress, Upset and tearful due to recent news HEENT: Atraumatic, Mucous Membr. moist/pink Cardiovascular: Regular Rate, Normal S1, Normal S2 Lungs: Clear to Auscultation Abdomen: Normal Bowel Sounds, Soft, No Tenderness Neurological: resting tremor Extremities: No Edema, Normal Pulses Assessment/Plan Assessment: Patient is 56-year-old female with past medical history significant for anxiety, depression, alcohol abuse, hypertension, who comes in for chief complaint requesting alcohol detox. Patient does not have history of withdrawal seizures or DTs and she has failed outpatient rehabilitation. ED workup shows profound hypomagnesemia with mild QTC prolongation. Patient will be admitted to the general medicine floor for further monitoring and workup. PLAN: Alcohol detox: Pt comes in requesting EtOH detox, utox showing level of 111. Last drink on 10/27/2016. Max CIWA score overnight: 3 * CIWA protocol * Pt did not require any ativan overnight * Ativan decreased from q6 to q12h Anion gap- Resolved Patient has A gap metabolic acidosis, with a gap of 21. Looking at the delta delta looks that patient has both gap and non-gap metabolic acidosis. Suspect that this is a combination of patient's alcohol ingestion and anxiety causing hyperventilation and respiratory alkalosis. However, if patient fails to improve we'll consider other etiologies such as toxic alcohol ingestion's and would pursue osmolal gap and a urine anion gap. She currently denies any ingestion. * Fluids for hydration * Monitor BEP Hypomagnesemia: Patient has magnesium of 0.8 with EKG suggestive of some minor changes. She has QTC of 471. Patient has low threshold to telemetry if repeat EKG shows worsening. Patient received 1 g IV mag in ED, she will receive a second one on the floor. Her previous calculation patient should receive 2.1 g every 6. * Repeat BEP * Repeat EKG Hyponatremia: Patient has sodium 132. Receive one bag of IV fluids in ED. * Monitor BEP Transaminitis: patient has AST 114, ALT 105, alkaline phosphatase 75. Likely secondary to alcohol abuse. However not classic 2-1 ratio. We'll continue to monitor * Monitor LFT in a.m. * If continues to trend upwards or patient has abdominal pain consider right upper quadrant ultrasound Depression: Chronic and stable. Patient denies any SI or HI. * Continue citalopram Hypertension: Blood pressure 120/77 in ED. * cont' valsartan-hctz Menopause Symptoms: chronic and stable * Con't Premarin tab DVT PPx: refusing pharmalogical tx, on ALPs Diet: regular Code: Full code Problem List: 1. Hypomagnesemia 2. Alcohol dependence 3. Anxiety Pain Ratin Pain Location: none Pain Goal: Remain pain free Pain Plan: none Tomorrow's Labs & Rationales: cbc bep mg LFTs HAROON TIM,PABLO 10/31/16 1602: Attending MD Review Statement Attending Statement Attending MD Statement: examined this patient, discuss w/resident/PA/SIZE CHANGER, agreed w/resident/PA/SIZE CHANGER, reviewed EMR data (avail), discussed with nursing, discussed with case mgmt, amended to note Attending Assessment/Plan: Patient seen and examined, doing reasonably well. CIWA scores are running low. Patient is admitted with acute alcohol intoxication needing detox. Agree with tapering off Ativan quickly. Patient told me [facility]. This will need to be communicated with the clinical social worker tomorrow. Continue multivitamin folate and thiamine.
[2016-11-01 03:21] VITALS: BP 132/88
[2016-11-01 07:04] VITALS: BP 136/96
--- NOTE | 2016-11-01 07:29 | PN- Housestaff ---
MILAGROS TIM,[facility] 11/01/16 0729: Subjective Follow-up For: Alcohol detox, hypomagnesemia, AGMA, Transaminitis, Depression, HTN Subjective: Has seen and examined the patient. Patient was sitting in her bed. She wants to know when she can leave. Her Ativan was increased from 1 MG every 12 to 1 MG every 8 yesterday. She was quite tearful and upset to know that she might have to stay 1 more day. She has been researching about rehabilitation facilities. Previously she decided to go to [facility] now she is debating that. She states that it is very far from where she lives. She lives in [facility]. Her son has been coming from [place] to visit her everyday. She feels very unproductive over here. Review of Systems Constitutional: Reports: no symptoms. Cardiovascular: Denies: chest pain, edema, orthopena. Respiratory: Denies: cough, hemoptysis, orthopnea. Objective Last 24 Hrs of Vital Signs/I&O Vital Signs Date Time Temp Pulse Resp B/P B/P Pulse O2 O2 Flow FiO2 Mean Ox Delivery Rate 11/01 1451 98.1 72 20 140/88 95 Room Air 11/01 0857 65 144/96 11/01 0855 65 144/96 11/01 0704 98.1 63 20 136/96 97 11/01 0321 98.2 60 20 132/88 97 10/31 2347 98.0 74 18 128/62 96 10/31 2200 98.4 68 18 130/84 10/31 2000 98.4 68 18 130/84 10/31 1907 98.4 68 18 130/84 96 10/31 1800 98.3 88 18 128/86 10/31 1600 98.3 88 18 128/86 Intake & Output 11/01 1600 11/01 0800 11/01 0000 Intake Total 640 100 400 Output Total Balance 640 100 400 Intake, Oral 640 100 400 Physical Exam General Appearance: Alert, Oriented X3, Cooperative, No Acute Distress Skin: No Rashes, No Breakdown HEENT: Atraumatic Cardiovascular: Regular Rate, Normal S1, Normal S2 Lungs: Clear to Auscultation, Normal Air Movement Abdomen: Normal Bowel Sounds, Soft, No Tenderness Neurological: Normal Speech Current Medications: Current Medications Sig/Sandee Start time Last Medication Dose Route Stop Time Status Admin Acetaminophen 1,000 MG Q6P PRN 10/29 1700 AC IV Atenolol 25 MG QAM 10/29 1853 AC 11/01 PO 0855 Citalopram 20 MG DAILY 10/30 1030 AC 11/01 Hydrobromide PO 0856 Enoxaparin Sodium 40 MG DAILY 10/30 1531 AC SC Estrogens Conjugated 0.3 MG DAILY 10/30 1000 AC 11/01 PO 0855 Folic Acid 1 MG DAILY 10/31 1000 AC 11/01 PO 0857 Hydrochlorothiazide 12.5 MG DAILY 10/30 1000 AC 11/01 PO 0857 Ibuprofen 600 MG .STK-MED ONE 10/31 2148 DC PO 10/31 2149 Ibuprofen 600 MG Q6P PRN 10/29 1700 AC 10/31 PO 2147 Lactobacillus 1 CAP DAILY 10/30 1030 AC 11/01 Acidophilus PO 0854 Lorazepam 1 MG ONE ONE 11/01 1500 CAN PO 11/01 1501 Lorazepam 1 MG Q8 10/31 1400 DC 11/01 PO 0641 Lorazepam 2 MG Q2P PRN 10/29 1700 AC IV Lorazepam 1 MG Q2P PRN 10/29 1700 AC 10/29 IV 2217 Losartan Potassium 50 MG DAILY 10/30 1000 AC 11/01 PO 0857 Multivitamins 1 TAB DAILY 10/31 1000 AC 11/01 PO 0856 Ondansetron HCl 4 MG Q8P PRN 10/29 1700 AC IV Oxycodone HCl 10 MG Q6P PRN 10/29 1700 AC PO Patient Medication 1 ED .STK-MED ONE 11/01 1414 [place] Teaching ED 11/01 1415 Thiamine HCl 100 MG DAILY 10/31 1000 AC 11/01 PO 0856 Last 24 Hrs of Lab/Jesus Results Last 24 Hrs of Labs/Mics: Laboratory Tests 11/01/16 0730: Anion Gap 9, Estimated GFR 52 L, BUN/Creatinine Ratio 10.9, Magnesium 1.7, Total Bilirubin 0.5, Direct Bilirubin 0.2, AST 200 H, ALT 142 H, Alkaline Phosphatase 71, Total Protein 6.6, Albumin 3.8 Assessment/Plan Assessment: Patient is 56-year-old female with past medical history significant for anxiety, depression, alcohol abuse, hypertension, who comes in for chief complaint requesting alcohol detox. Patient does not have history of withdrawal seizures or DTs and she has failed outpatient rehabilitation. ED workup shows profound hypomagnesemia with mild QTC prolongation. Patient will be admitted to the general medicine floor for further monitoring and workup. PLAN: Alcohol detox: Pt comes in requesting EtOH detox, utox showing level of 111. Last drink on 10/27/2016. Max CIWA score overnight: 4 we discussed the case with attending. Patient currently does not have any signs of alcohol withdrawal. She was sober 3 weeks before coming to hospital and had one episode of binge drinking before her admission. Her CIWA scores have been low. Therefore her Ativan can be discontinued and patient can be followed off Ativan as per attending. Our business case analyst is working to find her a place tonight for rehab. Patient was originally scheduled [facility] to [facility]. Now she does not want to go there and wants something closer to her home so that her son does not have to communicate today from broken. Anion gap- Resolved Patient has A gap metabolic acidosis, with a gap of 21. Looking at the delta delta looks that patient has both gap and non-gap metabolic acidosis. Suspect that this is a combination of patient's alcohol ingestion and anxiety causing hyperventilation and respiratory alkalosis. However, if patient fails to improve we'll consider other etiologies such as toxic alcohol ingestion's and would pursue osmolal gap and a urine anion gap. She currently denies any ingestion. Oral Fluids for hydration and Monitor BEP Hypomagnesemia: Patient has magnesium of 0.8 with EKG suggestive of some minor changes. She has QTC of 471. Patient has low threshold to telemetry if repeat EKG shows worsening. Patient received 1 g IV mag in ED, she will receive a second one on the floor. Her previous calculation patient should receive 2.1 g every 6. * Repeat BEP * Repeat EKG Hyponatremia: Patient has sodium 132. Receive one bag of IV fluids in ED. * Monitor BEP Transaminitis: patient has AST 114, ALT 105, alkaline phosphatase 75. Likely secondary to alcohol abuse. However not classic 2-1 ratio. We'll continue to monitor * Monitor LFT in AST 200 ALT 142 * If continues to trend upwards or patient has abdominal pain consider right upper quadrant ultrasound Depression: Chronic and stable. Patient denies any SI or HI. * Continue citalopram Hypertension: Blood pressure 120/77 in ED. * cont' valsartan-hctz Menopause Symptoms: chronic and stable * Con't Premarin tab DVT PPx: refusing pharmalogical tx, on ALPs Diet: regular Code: Full code Problem List: 1. Hypomagnesemia 2. Alcohol dependence 3. Anxiety Pain Ratin Pain Location: none Pain Goal: Pain 4 or less Pain Plan: none Tomorrow's Labs & Rationales: bep lfts DVT/Prophylaxis: mechanical, early ambulation low risk KEELY TIM,GRAY 11/01/16 1407: Attending MD Review Statement Attending Statement Attending MD Statement: examined this patient, discuss w/resident/PA/GIFT WRAPPER, agreed w/resident/PA/GIFT WRAPPER, reviewed EMR data (avail) Attending Assessment/Plan: Patient seen and examined with the medical team. Patient currently does not have any signs of alcohol withdrawal. She was sober 3 weeks before coming to hospital and had one episode of binge drinking before her admission. Her CIWA scores have been low. Currently I do not see any signs of active withdrawal symptoms. Therefore her Ativan can be discontinued and patient can be followed off Ativan. Please contact a social and human services assistant for making arrangement for transfer to inpatient rehabilitation facility. Increase oral liquids and recheck creatinine tomorrow patient is still here. Patient is stable for discharge otherwise.
[2016-11-01 14:51] VITALS: BP 140/88
--- NOTE | 2016-11-01 16:42 | Patient Discharge Instructions ---
Discharge Instructions General Discharge Information You were seen/treated for: ETOH DETOX Watch for these problems: 1. Seizure 2.Fever 3. Chest pain 4. SOB Special Instructions: 1. Follow up inpatient detox at [facility]. Diet Continue normal diet: Yes Activity Full Activity/No Limits: Yes Acute Coronary Syndrome Inclusion Criteria At DC or during hospital stay patient has or had the following: ACS DIAGNOSIS No Discharge Core Measures Meds if any: Prescribed or Continued at Discharge Meds if any: NOT Prescribed or Continued at Discharge Congestive Heart Failure Inclusion Criteria At DC or during hospital stay patient has or had the following: CHF DIAGNOSIS No Discharge Core Measures Meds if any: Prescribed or Continued at Discharge Meds if any: NOT Prescribed or Continued at Discharge Cerebrovascular accident Inclusion Criteria At DC or during hospital stay patient has or had the following: CVA/TIA Diagnosis No Discharge Core Measures Meds if any: Prescribed or Continued at Discharge Meds if any: NOT Prescribed or Continued at Discharge Venous thromboembolism Inclusion Criteria VTE Diagnosis No VTE Type NONE VTE Confirmed by (Test) NONE Discharge Core Measures - Per Current guidelines, there needs to be overlap - treatment for the first 5 days of Warfarin therapy. - If discharged on Warfarin prior to 5 days of - overlap therapy, the patient will need to be - assessed for post discharge needs including - *Post discharge parental anticoagulation - *Warfarin and/or parental anticoagulation education - *Follow up date to check INR post discharge At least 5 days overlap therapy as Inpatient No Meds if any: Prescribed or Continued at Discharge Note: Overlap Therapy is Warfarin and Anticoagulant Meds if any: NOT Prescribed or Continued at Discharge
--- NOTE | 2016-11-01 16:42 | Discharge Summary ---
Visit Information Visit Dates Admission Date: 10/29/16 Discharge Date: 11/02/16 Hospital Course Course Attending Physician: Geovanna Bella Primary Care Physician: PATIENT HAS NO PRIMARY CARE DR Hospital Course: Patient is 56-year-old female with past medical history significant for anxiety, depression, alcohol abuse, hypertension, who comes in for chief complaint requesting alcohol detox. Patient does not have history of withdrawal seizures or DTs and she has failed outpatient rehabilitation. ED workup: shows profound hypomagnesemia with mild QTC prolongation. Patient was admitted to the general medicine floor for further monitoring and workup. Pt seen for the following problems: Inpatient Alcohol detox- RESOLVED: Pt came in requesting EtOH detox, utox showing level of 111. Last drink on 10/27/2016. Her CIWA scores have been low. Therefore her Ativan can be discontinued. Patient was originally scheduled to go to [facility] rehab now requesting something closer to home. She is going to [facility] facility TODAY Anion gap-RESOLVED. Patient had A gap metabolic acidosis, with a gap of 21. Looking at the delta delta looks that patient has both gap and non-gap metabolic acidosis. we suspected that this is a combination of patient's alcohol ingestion and anxiety causing hyperventilation and respiratory alkalosis. Hypomagnesemia-RESOLVED: Patient had magnesium of 0.8 with EKG suggestive of some minor changes. She has QTC of 471. Her Mag was appropriately repleted. * monitor outpatient Hyponatremia: Patient has sodium 132. RESOLVED with PO intake of fluids. * Monitor outpt. Transaminitis: patient has AST 114, ALT 105, alkaline phosphatase 75. Likely secondary to alcohol abuse. However not classic 2-1 ratio. * Monitor outpt * Consider RUQ US if worsens Depression: Chronic and stable. Patient denies any SI or HI. Continue citalopram Hypertension: Blood pressure 120/77 in ED. * cont' valsartan-hctz Menopause Symptoms: chronic and stable. * Con't Premarin tab. F/U with PCP Allergies: Coded Allergies: Sulfa (Sulfonamide Antibiotics) (Intermediate, FACIAL SWELLING 10/29/16) Disposition Summary Disposition Principal Diagnosis: Alcohol Detox HypoMg Additional Diagnosis: HTN Depression Discharge Disposition: detox facility Discharge Instructions General Discharge Information Code Status: Full Code Patient's Diet: regular Patient's Activity: as tolerated Follow-Up Instructions/Appts: please continue In patient Detox treatment Medications at Discharge Discharge Medications: Continue taking these medications: Atenolol (Atenolol) 25 MG TABLET 1 Tablet ORAL Every Morning Comments: Last Taken: 11/02/16 Time: 8:30 AM Valsartan/Hydrochlorothiazide (Valsartan-Hctz 160-12.5 MG Tab) 160 MG-12.5 MG TABLET 1 Tablet ORAL Every Morning Qty = 90 Comments: Last Taken: 11/02/16 Time: 8:30 AM Estrogens, Conjugated (Premarin) 0.3 MG TABLET 1 Tablet ORAL Every Morning Qty = 90 Comments: Last Taken: 11/02/16 Time: 8:30 AM Citalopram Hydrobromide (Citalopram HBr) 40 MG TABLET 1 Tablet ORAL Every Morning Qty = 90 Comments: Last Taken: 11/02/16 Time: 8:30 AM Start taking the following new medications: Thiamine HCl (B-1) 100 MG TABLET 1 Tablet ORAL DAILY Qty = 30 No Refills Comments: Last Taken: 11/02/16 Time: 8:30 AM Folic Acid (Folic Acid) 0.4 MG TABLET 1 Tablet ORAL DAILY Qty = 30 No Refills Comments: Last Taken: 11/02/16 Time: 8:30 AM Multiple Vitamin (Multivitamins) 1 EACH TABLET 1 Tablet ORAL DAILY Qty = 30 No Refills Comments: Last Taken: 11/02/16 Time: 8:30 AM Copies To: EKELY TIM,GEOVANNA
[2016-11-01 22:34] VITALS: BP 122/94
[2016-11-02 06:21] VITALS: BP 136/60
--- NOTE | 2016-11-02 08:06 | PN- Housestaff ---
Subjective Follow-up For: alcohol detox Complaints: no complaints Subjective: I have seen and examined the patient. The patient was sleeping. She was easily arousable. She does not have any withdrawal symptoms right now. She wants to leave today for rehabilitation facility as soon as possible. She has been talking to [facility]. According to her they have a place available for her but they need to have more information about her withdrawal and Ativan. Our outsole caser Santa will get in touch with the patient and the facility Review of Systems Constitutional: Reports: no symptoms. Objective Last 24 Hrs of Vital Signs/I&O Vital Signs Date Time Temp Pulse Resp B/P B/P Pulse O2 O2 Flow FiO2 Mean Ox Delivery Rate 11/02 0621 98.1 55 20 136/60 94 Room Air 11/01 2234 98.1 52 18 122/94 96 11/01 1451 98.1 72 20 140/88 95 Room Air 11/01 0857 65 144/96 11/01 0855 65 144/96 Physical Exam General Appearance: Alert, Oriented X3, Cooperative, No Acute Distress Skin: No Rashes, No Breakdown Skin Temp/Moisture Exam: Cool/Dry HEENT: Atraumatic Cardiovascular: Regular Rate, Normal S1, Normal S2 Lungs: Clear to Auscultation, Normal Air Movement Abdomen: Normal Bowel Sounds, Soft, No Tenderness Neurological: Normal Speech Current Medications: Current Medications Sig/Sandee Start time Last Medication Dose Route Stop Time Status Admin Acetaminophen 1,000 MG Q6P PRN 10/29 1700 AC IV Atenolol 25 MG QAM 10/29 1853 AC 11/01 PO 0855 Citalopram 20 MG DAILY 10/30 1030 AC 11/01 Hydrobromide PO 0856 Enoxaparin Sodium 40 MG DAILY 10/30 1531 AC SC Estrogens Conjugated 0.3 MG DAILY 10/30 1000 AC 11/01 PO 0855 Folic Acid 1 MG DAILY 10/31 1000 AC 11/01 PO 0857 Hydrochlorothiazide 12.5 MG DAILY 10/30 1000 AC 11/01 PO 0857 Ibuprofen 600 MG .STK-MED ONE 11/01 1800 DC PO 11/01 1801 Ibuprofen 600 MG Q6P PRN 10/29 1700 AC 11/01 PO 1802 Lactobacillus 1 CAP DAILY 10/30 1030 AC 11/01 Acidophilus PO 0854 Lorazepam 1 MG ONE ONE 11/01 1500 CAN PO 11/01 1501 Lorazepam 1 MG Q8 10/31 1400 DC 11/01 PO 0641 Lorazepam 2 MG Q2P PRN 10/29 1700 AC IV Lorazepam 1 MG Q2P PRN 10/29 1700 AC 10/29 IV 2217 Losartan Potassium 50 MG DAILY 10/30 1000 AC 11/01 PO 0857 Melatonin 3 MG AT BEDTIME PRN 11/01 1730 AC 11/01 PO 2146 Multivitamins 1 TAB DAILY 10/31 1000 AC 11/01 PO 0856 Ondansetron HCl 4 MG Q8P PRN 10/29 1700 AC IV Oxycodone HCl 10 MG Q6P PRN 10/29 1700 AC PO Patient Medication 1 ED .STK-MED ONE 11/01 1414 DC Teaching ED 11/01 1415 Thiamine HCl 100 MG DAILY 10/31 1000 AC 11/01 PO 0856 Assessment/Plan Assessment: Patient is 56-year-old female with past medical history significant for anxiety, depression, alcohol abuse, hypertension, who comes in for chief complaint requesting alcohol detox. Patient does not have history of withdrawal seizures or DTs and she has failed outpatient rehabilitation. ED workup: shows profound hypomagnesemia with mild QTC prolongation. Patient was admitted to the general medicine floor for further monitoring and workup. Pt seen for the following problems: Inpatient Alcohol detox- RESOLVED: Pt came in requesting EtOH detox, utox showing level of 111. Last drink on 10/27/2016. Her CIWA scores have been low. Therefore her Ativan can be discontinued. Patient was originally scheduled to go to [facility] rehab now requesting something closer to home. She is going to [facility] facility TODAY Anion gap-RESOLVED. Patient had A gap metabolic acidosis, with a gap of 21. Looking at the delta delta looks that patient has both gap and non-gap metabolic acidosis. we suspected that this is a combination of patient's alcohol ingestion and anxiety causing hyperventilation and respiratory alkalosis. Hypomagnesemia-RESOLVED: Patient had magnesium of 0.8 with EKG suggestive of some minor changes. She has QTC of 471. Her Mag was appropriately repleted. * monitor outpatient Hyponatremia: Patient has sodium 132. RESOLVED with PO intake of fluids. * Monitor outpt. Transaminitis: patient has AST 114, ALT 105, alkaline phosphatase 75. Likely secondary to alcohol abuse. However not classic 2-1 ratio. * Monitor outpt * Consider RUQ US if worsens Depression: Chronic and stable. Patient denies any SI or HI. Continue citalopram Hypertension: Blood pressure 120/77 in ED. * cont' valsartan-hctz Menopause Symptoms: chronic and stable. * Con't Premarin tab. F/U with PCP DVT PPx: refusing pharmalogical tx, on ALPs Diet: regular Code: Full code Problem List: 1. Hypomagnesemia 2. Alcohol dependence 3. Anxiety Pain Ratin Pain Location: none Pain Goal: Pain 4 or less Pain Plan: none Tomorrow's Labs & Rationales: anticipated discharge 2. Alcohol dependence 3. Anxiety Pain Ratin Pain Location: none Pain Goal: Pain 4 or less Pain Plan: none Tomorrow's Labs & Rationales: anticipated discharge
[2016-11-02 08:23] VITALS: BP 130/96
--- NOTE | 2016-11-02 08:30 | PN- Att Addend ---
Attending Addendum Attending Brief Note Attending MD Statement: examined this patient, discuss w/resident/PA/DEVULCANIZER HEAD, agreed w/resident/PA/DEVULCANIZER HEAD, reviewed EMR data (avail) Attending Assessment/Plan: Patient seen and examined with the medical team. Patient currently does not have any signs of alcohol withdrawal. She was sober 3 weeks before coming to hospital and had one episode of binge drinking before her admission. Her CIWA scores have been low. Vital Signs Date Time Temp Pulse Resp B/P B/P Pulse O2 O2 Flow FiO2 Mean Ox Delivery Rate 11/02 0823 70 130/96 11/02 0822 70 130/96 11/02 0621 98.1 55 20 136/60 94 Room Air 11/01 2234 98.1 52 18 122/94 96 11/01 1451 98.1 72 20 140/88 95 Room Air 11/01 0857 65 144/96 11/01 0855 65 144/96 Exam: General: Patient awake alert oriented without any distress CVS: S1 plus S2 without any murmur or gallops Chest: Few scattered crepitation without any wheeze. There is no respiratory distress. 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 her Ativan was discontinued yesterday and patient appears stable for discharge today. Case discussed with social worker clinical. Patient's son will be transporting her to inpatient rehabilitation facility today. CMR signed. Total time spent in preparation for discharge plan, patient education, and CMR preparation was 35 minutes.
[2016-11-02] MEDS ORDERED: MULTIVITAMINS1 EAC9 PO (08:36)
[2016-11-02] MEDS ORDERED: FOLIC ACID0.4 M1 PO (08:36)
[2016-11-02] MEDS ORDERED: B-1100 MG PO (08:36)
== END 2016-11-02 10:00 | DRG 897 ==
LOC: ERH 13:19 → 2NB 16:40 → ERHI 16:40 → 2NB 16:40 → ENRESERV 17:05 → ENTRNSPT 17:37 → EDTRNSPTSTS 17:55 → 2NB 17:59 → CMPTRNSPT 18:20 → 2NB 11-01 08:54 → ENPENDDIS 11-02 09:16 → 2NB 11-02 10:00
PROVIDERS: Physician Assistant; Student in an Organized Health Care Education/Training Program; ADMIT Internal Medicine
PROC: HZ2ZZZZ Detoxification Services for Substance Abuse Treatment (ICD-10-PCS; principal; 2016-10-29)
DX: F10.229 Alcohol dependence with intoxication, unspecified (principal); E87.2 Acidosis; E87.1 Hypo-osmolality and hyponatremia; Y90.5 Blood alcohol level of 100-119 mg/100 ml; E83.42 Hypomagnesemia; F41.9 Anxiety disorder, unspecified; I10 Essential (primary) hypertension; Z78.0 Asymptomatic menopausal state; I45.81 Long QT syndrome; Z88.2 Allergy status to sulfonamides
CPT/HCPCS: 2NBSP; 36415; 80307; 82436; 93005; 93010; 96374; 96375; G0480; J0131; J1644; J1650; J2405; J3490; J7060